=== PATIENT | male | born 2000 ===

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

== ENCOUNTER 2021-03-12 11:10 | Emergency (ER) | payer BC, OTHER ==
[~2021-03-12] VITALS: Ht 172.7 cm; Wt 99.8 kg
[2021-03-12] MEDS ORDERED: ONDA4ODT MM (11:47)
== END 2021-03-12 11:41 | disposition home or self-care (01) ==
LOC: ER 11:10
DX: U07.1 COVID-19 (principal); F17.200 Nicotine dependence, unspecified, uncomplicated; Z88.0 Allergy status to penicillin
CPT/HCPCS: 99284